=== PATIENT | female | born 1940 | race Caucasian/White ===

== ENCOUNTER 2018-08-10 06:42 | Inpatient (IN) ==
[~2018-08-10 06:42] MED LIST: Vancomycin 1,000 MG, Sodium Chloride IRRigation 1,000 ML IR ONE
[2018-08-10] MEDS ORDERED: CeFAZolin Syr 2,000MG/20 ML 2,000 MG/20 ML SYRINGE IVPB ONE (07:01)
[2018-08-10] MEDS ORDERED: Ringers Solution, Lactated 1,000 ML IVC SCH (07:15)
[2018-08-10] MEDS ORDERED: *HR* FentaNYL (PF) 100 MCG/2 ML VIAL ONE ×2 (07:16→09:15)
[2018-08-10] MEDS ORDERED: *HR* Propofol 200 MG/20 ML VIAL IVP ONE (07:16)
[2018-08-10] MEDS ORDERED: *HR* Midazolam HCl 2 MG/2 ML VIAL ONE (07:16)
[2018-08-10] MEDS ORDERED: Lidocaine -MPF 2% 2 ML VIAL ONE (07:17)
[2018-08-10] MEDS ORDERED: *HR* Rocuronium Bromide 50 MG/5 ML VIAL ONE ×2 (07:17→10:32)
[2018-08-10] MEDS ORDERED: Lidocaine -MPF 4% 5 ML AMPUL ONE (07:17)
[2018-08-10] MEDS ORDERED: Dexamethasone 4 MG/ML VIAL ONE (07:17)
[2018-08-10] MEDS ORDERED: Ondansetron 4 MG/2 ML VIAL ONE (07:17)
[2018-08-10] MEDS ORDERED: EPHEDrine 50 MG/ML VIAL ONE (07:24)
[2018-08-10] MEDS ORDERED: Heparin 1,000 UNITS/500 mL 2,000 ML ONE (07:53)
[2018-08-10] MEDS ORDERED: Isovue-300 150 ML INFUS..BTL IV ONE (07:54)
--- NOTE | 2018-08-10 07:55 | Anesthesia Evaluation PreOp ---
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) Other Medical History: Other (Obesity, BMI 30) Anesthesia History: No Prior Anesthetic Complications, Past Anesthesia ( Appendectomy) Alcohol Use: none Drug use: none Medications and Allergies Aspirin [Adult Aspirin Regimen] 81 mg PO DAILY 08/10/18 [History] Atorvastatin Calcium [Lipitor] 40 mg PO DAILY 08/10/18 [History] Cyanocobalamin (Vitamin B-12) [Vitamin B-12] 100 mcg PO DAILY 08/10/18 [History] Furosemide [Lasix] 20 mg PO DAILY 08/10/18 [History] Lisinopril [Zestril] 20 mg PO DAILY 08/10/18 [History] 3 Allergy/AdvReac Type Severity Reaction Status Date / Time meperidine [From Demerol] Allergy Vomiting Verified 07/26/18 08:43 - Meds/Allergy Pre-op Review Medications Reviewed: Yes Allergies Reviewed: Yes Beta Blockers on Current Med List: No Anesthesia Results - Labs Laboratory Last Values WBC 8.2 K/mcL (4.3-11.1) 07/26/18 11:35 RBC 4.72 M/mcL (3.82-4.97) 07/26/18 11:35 Hgb 13.4 g/dL (11.5-15.4) 07/26/18 11:35 Hct 41.2 % (35.3-44.9) 07/26/18 11:35 MCV 87.3 fL (83.0-100.0) 07/26/18 11:35 MCH 28.4 pg (28.0-33.3) 07/26/18 11:35 MCHC 32.5 g/dL (31.6-35.5) 07/26/18 11:35 RDW 14.4 % (11.5-14.5) 07/26/18 11:35 Plt Count 197 K/mcL (140-400) 07/26/18 11:35 MPV 12.1 fL (9.4-12.4) 07/26/18 11:35 Immature Gran % 0.2 % (0-4) 07/26/18 11:35 Seg Neutrophils % 74.7 % 07/26/18 11:35 Lymphocytes % 15.3 % 07/26/18 11:35 Monocytes % 6.7 % 07/26/18 11:35 Eosinophils % 2.5 % 07/26/18 11:35 Basophils % 0.6 % 07/26/18 11:35 Neutrophils # 6.2 K/mcL (1.6-8.9) 07/26/18 11:35 Lymphocytes # 1.3 K/mcL (0.6-4.6) 07/26/18 11:35 Monocytes # 0.6 K/mcL (0.0-1.3) 07/26/18 11:35 Eosinophils # 0.2 K/mcL (0.0-0.6) 07/26/18 11:35 Basophils # 0.1 K/mcL (0.0-0.2) 07/26/18 11:35 PT 12.1 Seconds (9.4-12.1) 07/26/18 11:35 INR 1.1 07/26/18 11:35 APTT 31.5 Seconds (26.0-36.0) 07/26/18 11:35 Sodium 143 mEq/L (136-145) 07/26/18 11:35 Potassium 4.5 mEq/L (3.5-5.1) 07/26/18 11:35 Chloride 108 mEq/L (98-107) H 07/26/18 11:35 Carbon Dioxide 29 mEq/L (23-29) 07/26/18 11:35 BUN 16 mg/dL (8-23) 07/26/18 11:35 Creatinine 0.67 mg/dL (0.60-1.20) 07/26/18 11:35 Est GFR ( Amer) > 60 (> 60) 07/26/18 11:35 Est GFR (Non-Af Amer) > 60 (> 60) 07/26/18 11:35 BUN/Creatinine Ratio 24 (6-26) 07/26/18 11:35 Glucose 130 mg/dL (70-105) H 07/26/18 11:35 Calculated Osmolality 299 (280-300) 07/26/18 11:35 Calcium 10.0 mg/dL (8.6-10.3) 07/26/18 11:35 Blood Type B POSITIVE 07/26/18 11:35 Antibody Screen NEGATIVE 07/26/18 11:35 Anesthesia Exam O2 Sat Height 1.63 m Height 1.63 m Height 1.63 m Weight 79.379 kg Weight 79.379 kg Weight 79.379 kg O2 Sat by Pulse Oximetry 96 O2 Sat by Pulse Oximetry 96 Vital Signs Temp Pulse Resp BP Pulse Ox 98.2 F 76 18 164/79 96 08/10/18 07:05 08/10/18 07:05 08/10/18 07:05 08/10/18 07:05 08/10/18 07:05 NPO (# of Hours): 8 - HEENT Mallampati: II Teeth: Edentulous Oral Opening: Greater than 3 - TRAFFIC SURVEY TECHNICIAN LOC: Oriented (AA X3) TRAFFIC SURVEY TECHNICIAN Motor: Normal RUE, Normal LUE, Normal RLE, Normal LLE, Normal Face - Cardiac Rhythm: Regular - Pulmonary Breath Sounds: bilateral Clear Respiratory Effort: Symmetrical Anesthesia Assess/Plan ASA Score: 3 Modified Warren Scale for Level of Consciousness: Cooperative, oriented, and tranquil Anesthetic Plan: General Monitoring Plan: Standard Monitors, A-Line Recovery Plan: PACU Anes Supervising Prov Stmt: Patient informed and consented. Risks, benefits, and alternatives discussed. Patient wishes to proceed.
--- NOTE | 2018-08-10 08:00 | History & Physical Report ---
Date of Encounter: 08/10/18 Time of Encounter: 07:58 24 Hour HP Update - Instructions Instructions: If the History and Physical is less than 30 days old and was completed prior to A.M. admission and or procedure and has NOT been updated on calendar day of procedure please complete this update prior to performing procedure. - Update Patient reports changes in Medical Condition: No Changes in examination, assessment, or condition: No Changes in Medication: No Preop tests/diagnostics Reviewed: Yes Surgery Remains Indicated: Yes Consent for Planned Operative Procedure(s) Verified: Yes - Pre-Operative Checklist Preoperative Checklist Indicated: Yes Prophylactic Antibiotic Ordered: Yes (vancomycin due to MRSA risk) Home Medications Include Beta Libia: No Beta Libia Taken Today (Day of Surgery): No Beta Libia Taken Yesterday (Day Prior to Surgery): No Is VTE Prophylaxis Indicated?: Yes
[2018-08-10] MEDS ORDERED: *HR* PHENYLEPHRINE 1,000 MCG/10 ML SYRINGE IVP ONE (08:12)
[2018-08-10] MEDS ORDERED: *HR* Morphine 10 MG/ML VIAL ONE (09:14)
[2018-08-10] MEDS ORDERED: *HR* OxyCODONE Immed Rel 5 MG TABLET PO PRN ×2 (09:49→13:26)
[2018-08-10] MEDS ORDERED: *HR* Heparin 5,000 UNIT/ML VIAL ONE ×2 (09:49→09:52)
[2018-08-10] MEDS ORDERED: *HR* Phenylephrine 10 MG/ML VIAL ONE (10:06)
[2018-08-10] MEDS ORDERED: *HR* Labetalol 100 MG/20 ML MDV IVP PRN (10:24)
[2018-08-10] MEDS ORDERED: *HR* HYDROmorphone 2 MG TABLET PO PRN (10:24)
[2018-08-10] MEDS ORDERED: MORPHINE SUL Oral CONC 10 MG/0.5 ML ORAL.SYG SL PRN (10:24)
[2018-08-10] MEDS ORDERED: Dexamethasone 4 MG/ML VIAL IVP ONE (10:24)
[2018-08-10] MEDS ORDERED: *HR* Promethazine 25 MG/ML VIAL IVP PRN (10:24)
[2018-08-10] MEDS ORDERED: Neostigmine Methylsulfate 3 MG/3 ML SYRINGE ONE (11:43)
[2018-08-10] MEDS ORDERED: Acetaminophen IV 1,000 MG/100 ML INFUS..BTL ONE (11:44)
[2018-08-10] MEDS ORDERED: Heparin 1,000 UNITS/500 mL 500 ML ONE (11:57)
--- NOTE | 2018-08-10 12:26 | Operative Note ---
Date of procedure: 08/10/18 Pre-op diagnosis: Abdominal aortic aneurysm, peripheral vascular disease with disabling khang Post-op diagnosis: same Procedure: 1. Endograft repair of infrarenal abdominal aortic aneurysm with Cook Isabella graft and 1 docking limb including radiologic supervision and interpretation. 2. Left common femoral to right common femoral artery bypass with 6 mm ring reinforced PTFE graft. 3. Right femoral vessel exposure for endograft placement. 4. Left femoral vessel exposure for endograft placement. Complications: None Anesthesia: GETA Surgeon: Kali Griggs Was there an costumer assistant present: Yes Orange Grower: Thuan Londono Estimated blood loss (cc): 100 Specimen: None Condition: stable Disposition: PACU Procedure in Detail: Indications: The patient is a 78-year-old female is found have an abdominal aortic aneurysm. She is also undergone a right common iliac artery occlusion with significant disabling right lower extremity claudication. Endograft repair of her aneurysm was recommended along with bypass for revascularization of the right lower extremity. Procedure: The patient was identified, brought to the operating room and placed in the supine position on the operating room table. After induction of general endotracheal anesthesia, the patient was cleaned and draped in normal sterile fashion. Oblique incisions were made over both groins sharply. Hemostasis was obtained with electrocautery. Using blunt and sharp and electrocautery dissection, the bilateral common, deep and superficial femoral arteries were dissected circumferentially and surrounded with Vessel Loops. At this point, the patient received 5000 units of heparin intravenously and then a left femoral puncture was made with a large-bore needle. A Bentson wire was advanced into the aorta under fluoroscopic view. The needle was exchanged for 8-Pashto sheath which was then placed into the left iliac artery. The pigtail catheter was advanced over the wire and the wire was removed and an abdominal aortogram was then performed. This revealed level of the renal arteries. A Lunderquist wire was advanced through the pigtail to the aortic arch under fluoroscopic view. The position of the wire was marked on the drapes. The wire was then removed and an additional abdominal aortic angiogram was performed to further identify the renal arteries. The Lunderquist wire was then reinserted and the catheter was withdrawn. A ZenCarousell Isabella converter was then advanced over the wire positioned in the infrarenal position. The graft was then deployed. The top cap was retrieved and the introducer was removed. An oblique view of the left pelvis was performed to determine the length of the graft extension limb on the left. The graft extension was then advanced over the wire and positioned in the usual fashion. Upon completion of the graft docking limb extension, a Coda balloon was then advanced into the graft proximal and distal endpoints as well as overlap were expanded with gentle pressure. The balloon was left in the suprarenal position and a Flush catheter was placed in the suprarenal aorta. A Flush completion angiogram revealed a persistent type I or type II endoleak. The Coda balloon was then reintroduced and inflated along the entire course of the main body as well as the extension limb. A repeat angiogram was then performed via the pigtail catheter. A persistent but smaller endoleak was noted. Due to the heparinization of the patient in the juxtarenal position of the endograft placement no further interventions were planned at this point. Tension was applied to the Vessel loops in the left groin. A graft was tunneled between the left and right groin incisions. The patient received additional heparin intravenously. Tension was applied to the left femoral artery vessel loops. A longitudinal arteriotomy was made in the left common femoral artery and the graft was cut to fit the defect. The graft was anastamosed with a running 6-0 Prolene. Prior to completing the anastamosis, the left femoral vessels were flushed through the graft anastamosis and heparin was infused into the lumen. The anastamosis was completed and flow was restored in the left lower extremity. The graft was clamped. Thrombin and gelfoam were used at the proximal anastamosis. A longitudinal arteriotomy was made in the right femoral vessels. The graft was cut to fit the arterial defect and sutured in place with running 6-0 Prolene. Prior to completing the anastomosis the vessels were flushed through the graft. The graft was also flushed. Heparinized saline was infused into the lumen. The anastomosis was completed and flow was restored through the graft and into the bilateral lower extremities. Polyphasic signals were noted distal to the anastamoses. The wounds were irrigated with antibiotic-containing saline. Platelet rich and platelet poor plasma were infused into the wounds. Meticulous hemostasis was obtained throughout the wound with electrocautery. Wounds were reapproximated with layers of 2-0 and 3-0 Vicryl. Skin was reapproximated with 3-0 Monocryl. Sterile dressing was applied. The patient was extubated and taken to recovery room in stable condition.
--- NOTE | 2018-08-10 12:52 | Anesthesia Evaluation Post Op ---
Date of Encounter: 08/10/18 Time of Encounter: 12:51 - Vital Signs Vital Signs: Vital Signs Temperature 98.2 F 08/10/18 07:05 Pulse Rate 76 08/10/18 07:05 Respiratory Rate 18 08/10/18 07:05 Blood Pressure 164/79 08/10/18 07:05 O2 Sat by Pulse Oximetry 96 08/10/18 07:05 Temperature 97.6 F 08/10/18 12:20 Pulse Rate 80 08/10/18 12:20 Respiratory Rate 12 08/10/18 12:20 Blood Pressure 141/60 08/10/18 12:20 O2 Sat by Pulse Oximetry 98 08/10/18 12:20 - Lungs Lungs: Clear Ascult./Percussion - Airway Airway: Non-obstructed - Cardiovascular Regular Rate - Mental Status Mental Status: Alert & Oriented, Answers Appropriately - Pain Pain Scale: 0 Pain Scale used: Numeric (1 - 10) - Nausea Vomiting Nausea Vomiting: Not Present - Hydration Hydration: Tolerates oral liquids - Discharge PostOp Status: Transfer Patient to floor
--- NOTE | 2018-08-10 13:01 | Operative Note ---
Date of procedure: 08/10/18 Pre-op diagnosis: Abdominal aortic aneurysm/disabling right lower extremity claudication Post-op diagnosis: same Procedure: Endovascular repair of abdominal aortic aneurysm with aorto-left uni iliac stent graft Bilateral open femoral exposure Placement of aortic catheter for aortogram/nonspecific Creation of left to right femoral-femoral bypass graft with 6 mm PTFE Complications: None Anesthesia: JOSEYA Surgeon: Kali Griggs Co-Surgeon: Thuan Londono Was there an commercial loan assistant present: No Estimated blood loss (cc): 100 Specimen: None Condition: stable Disposition: PACU Procedure in Detail: History The patient is a 78-year-old white female with a history of severe right lower extremity pain and disabling claudication. A CT scan was performed as part of the evaluation which revealed a 5 cm abdominal aortic aneurysm. Because of the disabling claudication and the aneurysm the patient now comes to surgery for correction of both of these lesions. Procedure After informed consent was obtained the patient was taken to the operating room. General endotracheal anesthesia was established under arterial line pressure monitoring. The abdomen and groins were sterilely prepped and draped. A timeout protocol was observed. A 2 surgeon approach was utilized for this procedure due to the patient's comorbid conditions. Also for the need for intraoperative complex decision making and also to minimize complications associated with prolonged surgery time and anesthesia and blood loss. Bilateral femoral exposure was then achieved through a oblique incision in the groin bilaterally. The vessels were controlled with vessel loops. A deep subcutaneous tunnel was then created from the left to the right side. An 18-gauge needle was then used to puncture the left common femoral artery in a retrograde orientation. This was followed by a wire and a sheath. The dilator was removed from the sheath and the sheath was aspirated and flushed with heparinized saline. Intravenous heparin was administered as well. A marker pigtail catheter was then placed into the aorta. The catheter was placed in a suprarenal location and a formal aortogram wasn't obtained. This demonstrated the aneurysm as well as the renal arteries and the occlusion of the right common iliac artery. The patient will thus be repaired using a aorto left uni- iliac technique. The pigtail catheter was removed and then the main body device was selected. This was a Cook Zenith Flex endovascular graft that measured 24 x 104 mm. Under fluoroscopic control this device was deployed with suprarenal stent fixation. The iliac limb was then selected and this was a 13 x 74 mm Cook stent graft limb. This was then deployed. A Coda balloon was then inserted to gently expand the stent grafts. With this done the pigtail catheter was reinserted and an aortogram was obtained. The aortogram demonstrated a residual type I or type II leak. The area was then re-ballooned with a Coda balloon. A follow-up aortogram demonstrated the leak to be persistent though appeared to be smaller. This was thought secondary to heparin effect and therefore no further devices were deployed. The left groin devices were then removed. Attention was then directed to correcting the right iliac artery occlusion. A left to right femoral-femoral bypass graft was performed. The puncture site at the left groin was opened so that this could be the donor site for the femoral- femoral bypass graft. The graft was placed through the tunnel and the proximal anastomosis was initiated. After ascertaining appropriate length of the graft and arteriotomy was then made on the right common femoral artery which was a pulseless vessel. The artery was soft anteriorly but had significant plaque on the posterior two thirds of the circumference of the vessel. An endograft to side of artery anastomosis was then performed using 6-0 Prolene suture. After appropriate backbleeding and flushing the graft was opened. Pulsatile flow was achieved through the graft and into the right common femoral artery. This was documented by palpation and with Doppler evaluation. The wounds were then irrigated. Hemostasis was achieved. The wounds were then closed in layers using absorbable suture. Dry sterile dressing was then applied to both of the groins. There are no intraoperative complications. The patient tolerated the procedure well. The patient was taken from the operating room to the recovery room in stable condition.
[2018-08-10] MEDS ORDERED: 0.9 % Sodium Chloride 1,000 ML IVC SCH (13:26)
[2018-08-10] MEDS ORDERED: *HR* HYDROcodone/Acet 5/325 mg TABLET PO PRN (13:26)
[2018-08-10] MEDS ORDERED: Naloxone 0.4 MG/ML INJ IVP PRN (13:26)
[2018-08-10] MEDS ORDERED: OXYCODONE Oral CONC 10 MG/0.5 ML ORAL.SYG SL PRN ×2 (13:26)
[2018-08-10] MEDS ORDERED: Acetaminophen 325 MG TABLET PO PRN (13:26)
[2018-08-10] MEDS ORDERED: Ondansetron 4 MG/2 ML VIAL IVP PRN (13:26)
[2018-08-10] MEDS ORDERED: *HR* Labetalol 20 MG/4 ML SYRINGE IVP PRN (13:26)
[2018-08-10] MEDS: *HR* Metoprolol 5 MG/5 ML VIAL IVP SCH (17:58)
[2018-08-11] MEDS: *HR* Metoprolol 5 MG/5 ML VIAL IVP SCH ×2 (00:56→06:23)
[2018-08-11 04:42] LABS: Basophils % 0.1 %; Hematocrit 30.9 % (35.3-44.9); Hemoglobin 10.3 g/dL (11.5-15.4); Immature Granulocytes % 0.3 % (0-4); Lymphocytes # 0.8 K/mcL (0.6-4.6); Lymphocytes % 6.7 %; Mean Corpuscular HGB Conc 33.3 g/dL (31.6-35.5); Mean Corpuscular Hemoglobin 28.9 pg (28.0-33.3); Mean Corpuscular Volume 86.8 fL (83.0-100.0); Mean Platelet Volume 11.9 fL (9.4-12.4); Monocytes # 0.9 K/mcL (0.0-1.3); Monocytes % 7.1 %; Neutrophils # 10.2 K/mcL (1.6-8.9); Platelet Count 155 K/mcL (140-400); Red Blood Count 3.56 M/mcL (3.82-4.97); Red Cell Distribution Width 14.6 % (11.5-14.5); Segmented Neutrophils % 85.8 %
[2018-08-11 05:04] LABS: BUN/Creatinine Ratio 24 (6-26); Blood Urea Nitrogen 16 mg/dL (8-23); Calcium 8.7 mg/dL (8.6-10.3); Carbon Dioxide 24 mEq/L (23-29); Chloride 109 mEq/L (98-107); Glucose 149 mg/dL (70-105); Osmolality,Calculated 292 (280-300); Potassium 4.4 mEq/L (3.5-5.1); Sodium 139 mEq/L (136-145); eGFR For Non-African Americans > 60 (> 60)
[2018-08-11] MEDS ORDERED: *HR* Heparin 5,000 UNIT/ML VIAL SQ SCH ×2 (06:00)
--- NOTE | 2018-08-11 07:08 | Discharge Summary ---
Date of Encounter: 08/11/18 Time of Encounter: 07:40 - Discharge Diagnosis (1) Abdominal aortic aneurysm Priority: Primary Status: Chronic Comments: The patient is postoperative day 1 after endograft repair of an abdominal aortic aneurysm and a femoral to femoral artery bypass for peripheral vascular disease. She is healing well. She reports adequate pain control. Her abdomen is soft. Her feet are warm with pedal signals present. She is without complaint. She will be discharged today. Qualifiers: Presence of rupture: without rupture Qualified Code(s): I71.4 - Abdominal aortic aneurysm, without rupture (2) Essential hypertension Priority: Secondary Status: Chronic (3) Mixed hyperlipidemia Priority: Secondary Status: Chronic (4) Chronic anemia Priority: Secondary Status: Acute (5) Atherosclerosis of [place] arteries of extremities with intermittent claudication, right leg Priority: Secondary Status: Chronic - Hospital Course Hospital course: Ms. Garza is a 78 year old female with a history of an abdominal aortic aneurysm, hypertension, hyperlipidemia and peripheral vascular disease. She is found have an abdominal aortic aneurysm and a right iliac artery occlusion. She was admitted to [facility] on 08/10/2018. She underwent endograft repair of her aneurysm as well as a femoral to femoral artery bypass. She tolerated the procedure well. On postoperative day #1 she wass hemodynamically stable without any complaints. Abdomen soft, she was tolerating diet and her feet were warm. She was discharged home in stable condition without complications. - Time Spent with Patient Total time spent providing and/or coordinating discharge services: - Discharge Medications Prescriptions: HYDROcodone/Acet 5/325 mg [[place] 5-325 mg] 1 tab PO Q6HR PRN 5 Days #20 tablet PRN Reason: Postoperative pain Home Medications: Aspirin [Adult Aspirin Regimen] 81 mg PO DAILY 08/10/18 [History] Atorvastatin Calcium [Lipitor] 40 mg PO DAILY 08/10/18 [History] Cyanocobalamin (Vitamin B-12) [Vitamin B-12] 100 mcg PO DAILY 08/10/18 [History] Furosemide [Lasix] 20 mg PO DAILY 08/10/18 [History] Lisinopril [Zestril] 20 mg PO DAILY 08/10/18 [History] Potassium Chloride [K-Tab ER] 20 meq PO DAILY 08/10/18 [History] Turmeric Root Extract [Turmeric] 500 mg PO DAILY 08/10/18 [History] HYDROcodone/Acet 5/325 mg [[place] 5-325 mg] 1 tab PO Q6HR PRN 5 Days #20 tablet 08/11/18 [Rx] Allergies/Adverse Reactions: 3 Allergy/AdvReac Type Severity Reaction Status Date / Time meperidine [From Demerol] AdvReac Vomiting Verified 08/10/18 17:47 Date of admission: 08/10/18 13:24 Primary care physician: Nevin Ramsey CNP Procedure(s) Performed: 1. Endograft repair of abdominal aortic aneurysm. 2. Left common femoral to right common femoral artery bypass. Discharging clinician: Kali Griggs Anticipated date of discharge: 08/11/18 Exam Vital Signs, Last 4 Hours Temp Pulse Resp BP Pulse Ox 08/11/18 04:30 78 08/11/18 03:28 99.2 F 77 18 126/52 93 General: Present: Conversant, No Apparent Distress HEENT: Present: Pupils equal Cardiac: Present: Reg Rate and Rhythm Lungs: Present: Normal Breath Sounds Neuro: Present: Alert and responsive, No focal deficits noted Abdomen: Present: Soft Vascular: Present: Normal capillary refill. Absent: Cyanosis, Edema Skin: Present: No rashes noted on visualized skin - Patient Status Disposition: Home, Self-Care Condition: Good Functional capacity at discharge: independent ambulation Overall status at discharge: patient is back to baseline - Discharge Instructions Instructions: Peripheral Vascular Disorders (DC), Chronic Hypertension (DC) Follow Up With: Kali Griggs MD [Partnered Physician] - 09/12/18 3:50 pm Nevin Ramsey CNP [Primary Care Provider] - 08/18/18 1:30 pm Additional Instructions: May remove bandage and shower on 08/12/18. Wash wound gently and pat to dry. No tub baths or swimming until 09/11/18. Apply dry gauze to wounds daily for 7 days. When seated, sit in a reclined position for the next 7 days. No driving for [address] Griggs at [phone] with questions or concerns. - Diet and Activity Activity: increase activity as tolerated Diet: advance to your usual diet
[2018-08-11 07:47] VITALS: BP 145/63
[2018-08-11] MEDS ORDERED: Cyanocobalamin (B-12) 1,000 MCG TABLET PO SCH (09:00)
[2018-08-11] MEDS ORDERED: Lisinopril 20 MG TABLET PO SCH (09:00)
[2018-08-11] MEDS ORDERED: Furosemide 20 MG TABLET PO SCH (09:00)
[2018-08-11] MEDS ORDERED: Aspirin Enteric Coated 81 MG Tablet PO SCH (09:00)
== END 2018-08-11 10:09 | disposition home or self-care (01) | DRG 269 ==
LOC: SAMDAY 06:42 → 2NNU 13:24
PROVIDERS: ADMIT Surgery; ATTEND Surgery
PROC: VASFFBG (ICD-10-PCS; 2018-08-10 08:15)

== ENCOUNTER 2019-07-19 11:15 | Inpatient (IN) ==
[2019-07-19] MEDS ORDERED: CeFAZolin Syr 2,000MG/20 ML 2,000 MG/20 ML SYRINGE IVPB ONE (11:27)
[2019-07-19] MEDS ORDERED: Ringers Solution, Lactated 1,000 ML IVC SCH (11:30)
--- NOTE | 2019-07-19 11:35 | Anesthesia Evaluation PreOp ---
Date of Encounter: 07/19/19 Time of Encounter: 11:35 - Past History Planned Operation: fem fem bypass graft Cardiac History: HTN, Hyperlipidemia Pulmonary History: Denies Any Significant HX PROFESSOR OF VIOLIN History: Denies Any Significant HX Other Medical History: Denies Any Significant HX Anesthesia History: No Prior Anesthetic Complications, Past Anesthesia Alcohol Use: none Drug use: none Medications and Allergies Aspirin [Adult Aspirin Regimen] 81 mg PO DAILY 08/10/18 [History] Atorvastatin Calcium [Lipitor] 40 mg PO DAILY 08/10/18 [History] Cyanocobalamin (Vitamin B-12) [Vitamin B-12] 100 mcg PO DAILY 08/10/18 [History] Furosemide [Lasix] 20 mg PO DAILY 08/10/18 [History] Lisinopril [Zestril] 20 mg PO DAILY 08/10/18 [History] Potassium Chloride [K-Tab ER] 20 meq PO DAILY 08/10/18 [History] Turmeric Root Extract [Turmeric] 500 mg PO DAILY 08/10/18 [History] HYDROcodone/Acet 5/325 mg [[place] 5-325 mg] 1 tab PO Q6HR PRN 5 Days #20 tablet 08/11/18 [Rx] Allergy/AdvReac Type Severity Reaction Status Date / Time meperidine [From Demerol] AdvReac Vomiting Verified 08/10/18 17:47 - Meds/Allergy Pre-op Review Medications Reviewed: Yes Allergies Reviewed: Yes Beta Blockers on Current Med List: No Anesthesia Results - Imaging EKG: report reviewed (sinus rhythm) Additional studies: negative stress test, EF 70% Anesthesia Exam Selected Entries 07/19/19 11:29 Temperature 98.2 F Pulse Rate 86 Respiratory Rate 18 Blood Pressure 157/70 O2 Sat by Pulse Oximetry 93 Laboratory Tests 07/09/19 07/09/19 07/09/19 15:55 15:55 15:55 WBC 7.1 Hgb 12.2 Hct 38.4 Plt Count 176 PT 11.4 INR 1.0 APTT 30.9 Sodium 141 Potassium 3.9 Chloride 106 Carbon Dioxide 27 BUN 15 Creatinine 0.94 Weight: 80 kg BMI 30 NPO (# of Hours): over 8 hours - HEENT Pupil (Motor): Pupils equal Teeth: Edentulous (upper plate) Oral Opening: Greater than 3 - Cardiac Rhythm: Regular Murmur: None - Pulmonary Breath Sounds: bilateral Clear Respiratory Effort: Symmetrical Anesthesia Assess/Plan ASA Score: 2 Level of consciousness: Cooperative Anesthetic Plan: General Monitoring Plan: Standard Monitors Recovery Plan: PACU (Discussed GA, risks. Agreed to proceed.)
[2019-07-19] MEDS ORDERED: *HR* FentaNYL (PF) 100 MCG/2 ML VIAL ONE ×2 (12:49→14:42)
[2019-07-19] MEDS ORDERED: *HR* Propofol 200 MG/20 ML VIAL IVP ONE (12:49)
[2019-07-19] MEDS ORDERED: Vancomycin 1,000 MG, Sodium Chloride IRRigation 1,000 ML IR ONE (12:55)
[2019-07-19] MEDS ORDERED: Heparin 1,000 UNITS/500 mL 500 ML ONE (13:05)
--- NOTE | 2019-07-19 13:24 | History & Physical Report ---
Date of Encounter: 07/19/19 Time of Encounter: 13:15 24 Hour HP Update - Instructions Instructions: If the History and Physical is less than 30 days old and was completed prior to A.M. admission and or procedure and has NOT been updated on calendar day of procedure please complete this update prior to performing procedure. - Update Patient reports changes in Medical Condition: No Changes in examination, assessment, or condition: No Changes in Medication: No Preop tests/diagnostics Reviewed: Yes Surgery Remains Indicated: Yes Consent for Planned Operative Procedure(s) Verified: Yes - Pre-Operative Checklist Preoperative Checklist Indicated: Yes Prophylactic Antibiotic Ordered: Yes Home Medications Include Beta Libia: No Beta Libia Taken Today (Day of Surgery): No Beta Libia Taken Yesterday (Day Prior to Surgery): No Is VTE Prophylaxis Indicated?: Yes
[2019-07-19] MEDS ORDERED: Calcium Gluconate 1,000 MG/10 ML VIAL ONE (14:16)
[2019-07-19] MEDS ORDERED: Lidocaine 1% 20 ML MDV ONE (14:30)
[2019-07-19] MEDS ORDERED: *HR* Heparin 5,000 UNIT/ML VIAL ONE ×2 (14:41→14:49)
[2019-07-19] MEDS ORDERED: Dexamethasone 4 MG/ML VIAL ONE (15:19)
[2019-07-19] MEDS ORDERED: Ondansetron 4 MG/2 ML VIAL ONE (15:19)
[2019-07-19] MEDS ORDERED: Lidocaine -MPF 2% 2 ML VIAL ONE (15:20)
[2019-07-19] MEDS ORDERED: Lidocaine HCL 4 ML Topical Solution (Laryng-O-Jet Kit Sterile Pak) TP ONE (15:20)
[2019-07-19] MEDS ORDERED: *HR* Rocuronium Bromide 50 MG/5 ML VIAL ONE (15:20)
--- NOTE | 2019-07-19 16:11 | Operative Note ---
Date of procedure: 07/19/19 Pre-op diagnosis: Peripheral vascular disease with disabling claudication Post-op diagnosis: same Procedure: 1. Left to right femoral to femoral artery bypass graft thrombectomy with revision of the right graft anastomosis. Complications: None Anesthesia: GETA Surgeon: Kali Griggs Was there an admin assistant present: No Estimated blood loss (cc): 50 Specimen: None Condition: stable Disposition: PACU Procedure in Detail: Indications: The patient is a 78-year-old female with a history of peripheral vascular disease with disabling claudication. She previously underwent a femoral to femoral artery bypass graft. She also has a history of an abdominal aortic aneurysm and has an endograft in place. The patient presented to [facility] and home with complaints of disabling claudication. HerCT scan revealed evidence of a bypass graft occlusion. Revascularization was recommended to alleviate her symptoms. Procedure: The patient was identified in the preoperative area. The risks, benefits and alternatives of the procedure were discussed with her and all questions were answered. The patient was then taken to the operating room and placed in supine position on the operating table. After the induction of general endotracheal anesthesia she was cleaned and draped in normal sterile fashion. An incision was made to the patient's previous right inguinal scar sharply. Hemostasis was obtained with electrocautery. Through a process of blunt, sharp and cautery dissection, the superficial femoral, deep femoral, common femoral, external iliac artery and bypass graft were dissected circumferentially and surrounded with vessel loops. The patient received 5000 units of intravenous heparin. After waiting adequate time for the heparin to surgery at the vessels and graft were occluded. A longitudinal arteriotomy was made in the graft anastamosis and dense adherent thrombus was encountered. A Jordyn embolectomy catheter was passed through the graft into the left lower extremity. The balloon was inflated and withdrawn. Significant thrombus was retrieved. Multiple additional passes were performed until there were 2 passes without any thrombus. Vigorous pulsatile flow was noted through the graft this time. The graft was flushed with heparinized saline and occluded. Primary closure of the graft appeared to result in stenosis at the right graft limb. Therefore the decision was made to revise he proximal anastomosis with a Hemashield patch. A Hemashield patch was cut to fit the graft defect and sutured in place with running 6-0 Prolene. Prior to completing the closure a vessel was flushed and infused with heparinized saline. The graftotomy was reapproximated and flow was restored. Polyphasic signals were present distal to the anastomosis. Platelet rich and platelet poor plasma were infused into the wound. The wound was reapproximated with a layer of 2-0 Vicryl followed by 2 layers of 3-0 Vicryl. A 3-0 Monocryl was used to reapproximate the skin. Local anesthetic was infused into the skin. A sterile dressing was applied. The patient was not expected and taken to the recovery room in stable condition.
[2019-07-19] MEDS ORDERED: Acetaminophen IV 1,000 MG/100 ML INFUS..BTL IVPB ONE (16:28)
[2019-07-19] MEDS ORDERED: *HR* HYDROmorphone (PF) 1 MG/ML SYRINGE IVP PRN (16:28)
[2019-07-19] MEDS ORDERED: Ondansetron 4 MG/2 ML VIAL IVP ONE (16:28)
[2019-07-19] MEDS ORDERED: *HR* FentaNYL (PF) 100 MCG/2 ML VIAL IVP PRN (16:28)
[2019-07-19] MEDS ORDERED: *HR* Promethazine 25 MG/ML VIAL IVP PRN (16:28)
--- NOTE | 2019-07-19 17:12 | Anesthesia Evaluation Post Op ---
Date of Encounter: 07/19/19 Time of Encounter: 17:11 - Vital Signs Vital Signs: Vital Signs/O2 Sat/Glucose, Most Recent Temp Pulse Resp BP Pulse Ox 99.7 F H 80 12 158/74 93 07/19/19 16:44 07/19/19 17:04 07/19/19 17:04 07/19/19 17:04 07/19/19 17:04 - Lungs Lungs: Clear Ascult./Percussion - Airway Airway: Non-obstructed - Cardiovascular Regular Rate, Baseline Rhythm - Mental Status Mental Status: Alert & Oriented, Answers Appropriately, Baseline Status - Pain Pain Scale: 2 - Nausea Vomiting Nausea Vomiting: Not Present - Hydration Hydration: Tolerates oral liquids, [place] catheter - Discharge PostOp Status: Transfer Patient to floor
[2019-07-19] MEDS ORDERED: *HR* OxyCODONE Immed Rel 5 MG TABLET PO PRN ×2 (17:38)
[2019-07-19] MEDS ORDERED: 0.9 % Sodium Chloride 1,000 ML IVC SCH (17:38)
[2019-07-19] MEDS ORDERED: Naloxone 0.4 MG/ML INJ IVP PRN (17:38)
[2019-07-19] MEDS ORDERED: *HR* Labetalol 20 MG/4 ML SYRINGE IVP PRN (17:38)
[2019-07-19] MEDS ORDERED: Acetaminophen 325 MG TABLET PO PRN ×2 (17:38)
[2019-07-19] MEDS ORDERED: *HR* HYDROcodone/Acet 5/325 mg TABLET PO PRN ×2 (17:38)
[2019-07-19] MEDS: *HR* Metoprolol 5 MG/5 ML VIAL IVP SCH ×2 (18:33→23:22)
[2019-07-20 04:23] LABS: Basophils % 0.3 %; Hematocrit 33.8 % (35.3-44.9); Hemoglobin 10.9 g/dL (11.5-15.4); Immature Granulocytes % 0.4 % (0-4); Lymphocytes # 0.7 K/mcL (0.6-4.6); Mean Corpuscular HGB Conc 32.2 g/dL (31.6-35.5); Mean Corpuscular Hemoglobin 27.5 pg (28.0-33.3); Mean Corpuscular Volume 85.4 fL (83.0-100.0); Mean Platelet Volume 12.2 fL (9.4-12.4); Monocytes # 0.3 K/mcL (0.0-1.3); Neutrophils # 6.3 K/mcL (1.6-8.9); Platelet Count 160 K/mcL (140-400); Red Blood Count 3.96 M/mcL (3.82-4.97); Red Cell Distribution Width 14.6 % (11.5-14.5); Segmented Neutrophils % 86.3 %; White Blood Count 7.3 K/mcL (4.3-11.1)
[2019-07-20 04:40] LABS: BUN/Creatinine Ratio 18 (6-26); Blood Urea Nitrogen 13 mg/dL (8-23); Calcium 9.1 mg/dL (8.6-10.3); Carbon Dioxide 24 mEq/L (23-29); Chloride 109 mEq/L (98-107); Glucose 157 mg/dL (70-105); Osmolality,Calculated 291 (280-300); Potassium 4.4 mEq/L (3.5-5.1); Sodium 139 mEq/L (136-145); eGFR For African Americans > 60 (> 60); eGFR For Non-African Americans > 60 (> 60)
[2019-07-20] MEDS: *HR* Metoprolol 5 MG/5 ML VIAL IVP SCH (05:51)
[2019-07-20] MEDS ORDERED: *HR* Heparin 5,000 UNIT/ML VIAL SQ SCH ×2 (06:00)
[2019-07-20 07:10] VITALS: BP 155/61
--- NOTE | 2019-07-20 07:35 | Discharge Summary ---
Date of Encounter: 07/20/19 Time of Encounter: 07:55 - Discharge Diagnosis (1) Atherosclerosis of [place] arteries of extremities with intermittent claudication, right leg Priority: Primary Status: Chronic Comments: The patient is postoperative day #1 after femoral to femoral artery bypass graft thrombectomy with revision. Her incision is healing. She has no hematoma. Her compartments are soft. Her legs are feeling better. She has palpable pedal pulses. She will be discharged today. (2) Essential hypertension Priority: Secondary Status: Chronic (3) Abdominal aortic aneurysm Priority: Secondary Status: Chronic Qualifiers: Presence of rupture: without rupture Qualified Code(s): I71.4 - Abdominal aortic aneurysm, without rupture (4) Mixed hyperlipidemia Priority: Secondary Status: Chronic (5) Chronic anemia Priority: Secondary Status: Chronic - Hospital Course Hospital course: Ms. Garza is a 78 year old female with a history of peripheral vascular disease, hyperlipidemia, hypertension, an abdominal aortic aneurysm and chronic anemia previously underwent a femoral to femoral artery bypass graft. The patient presented with disabling claudication and was found have a graft occlusion. She was taken to the operating room where she underwent a femoral to femoral artery bypass graft thrombectomy with revision. On postoperative day #1 she was tolerating a diet. Her incision was healing well. She had palpable pedal pulses. Her compartments are soft. She was discharged to home in stable condition on postoperative day #1 without complications. - Time Spent with Patient Total time spent providing and/or coordinating discharge services: - Discharge Medications Prescriptions: New HYDROcodone/Acet 5/325 mg [[place] 5-325 mg] 1 tab PO Q6HR PRN 5 Days #20 tablet PRN Reason: Postoperative pain Clopidogrel [Plavix] 75 mg PO DAILY #30 tablet Continued Furosemide [Lasix] 20 mg PO DAILY Atorvastatin Calcium [Lipitor] 40 mg PO HS Aspirin [Adult Aspirin Regimen] 81 mg PO DAILY Cyanocobalamin (Vitamin B-12) [Vitamin B-12] 100 mcg PO DAILY Lisinopril [Zestril] 20 mg PO DAILY Potassium Chloride [K-Tab ER] 20 meq PO DAILY Turmeric Root Extract [Turmeric] 500 mg PO DAILY Home Medications: Aspirin [Adult Aspirin Regimen] 81 mg PO DAILY 08/10/18 [History] Atorvastatin Calcium [Lipitor] 40 mg PO HS 08/10/18 [History] Cyanocobalamin (Vitamin B-12) [Vitamin B-12] 100 mcg PO DAILY 08/10/18 [History] Furosemide [Lasix] 20 mg PO DAILY 08/10/18 [History] Lisinopril [Zestril] 20 mg PO DAILY 08/10/18 [History] Potassium Chloride [K-Tab ER] 20 meq PO DAILY 08/10/18 [History] Turmeric Root Extract [Turmeric] 500 mg PO DAILY 08/10/18 [History] Clopidogrel [Plavix] 75 mg PO DAILY #30 tablet 07/20/19 [Rx] HYDROcodone/Acet 5/325 mg [Regina 5-325 mg] 1 tab PO Q6HR PRN 5 Days #20 tablet 07/20/19 [Rx] Allergies/Adverse Reactions: Allergy/AdvReac Type Severity Reaction Status Date / Time meperidine [From Demerol] AdvReac Vomiting Verified 07/19/19 12:20 Date of admission: 07/19/19 17:37 Primary care physician: Nevin Ramsey CNP Procedure(s) Performed: Femoral to femoral artery bypass graft thrombectomy with revision. Discharging clinician: Kali Griggs Anticipated date of discharge: 07/20/19 Exam Vital Signs, Last 4 Hours Temp Pulse Resp BP Pulse Ox 07/20/19 07:07 97.9 F 55 18 155/61 96 07/20/19 03:46 98.0 F 74 19 152/56 97 General: Present: Conversant HEENT: Present: Pupils equal Cardiac: Present: Reg Rate and Rhythm Lungs: Present: Normal Breath Sounds Neuro: Present: Alert and responsive, No focal deficits noted Abdomen: Present: Soft Vascular: Present: Normal capillary refill, Pulse, normal, Surgical incisions (Incision is clean, dry and intact without erythema or drainage, no hematoma). Absent: Cyanosis, Edema Skin: Present: No rashes noted on visualized skin - Patient Status Disposition: Home, Self-Care Condition: Good Functional capacity at discharge: independent ambulation Overall status at discharge: patient is back to baseline - Discharge Instructions Instructions: Peripheral Vascular Disorders (DC), Chronic Hypertension (DC), Anemia (GEN) Follow Up With: Kali Griggs MD [Partnered Physician] - 08/08/19 3:50 pm Nevin Ramsey CNP [Primary Care Provider] - 07/24/19 9:30 am Additional Instructions: May remove bandage and shower on 07/21/2019. Wash wound gently with soap and water only and pat to dry. Apply dry gauze to wound daily for 7 days. No tub baths or swimming until 08/21/2019. Call Dr. Griggs at [phone] with questions or concerns. - Diet and Activity Activity: increase activity as tolerated Diet: advance to your usual diet
[2019-07-20] MEDS ORDERED: Lisinopril 20 MG TABLET PO SCH (09:00)
[2019-07-20] MEDS ORDERED: Aspirin Enteric Coated 81 MG Tablet PO SCH (09:00)
[2019-07-20] MEDS ORDERED: Furosemide 20 MG TABLET PO SCH (09:00)
[2019-07-20] MEDS ORDERED: NON-FORMULARY MEDICATION 1 EACH EACH (Turmeric Root Extract [Turmeric] 500 MG) PO SCH (09:00)
[2019-07-20] MEDS ORDERED: (Cyanocobalamin (Vitamin B-12) [Vitamin B-12] 100 MCG PO SCH (09:00)
== END 2019-07-20 09:56 | disposition home or self-care (01) | DRG 253 ==
LOC: SAMDAY 11:15 → 2NNU 17:37
PROVIDERS: ADMIT Surgery; ATTEND Surgery